=== PATIENT | male | born 1955 | race Caucasian/White ===

== ENCOUNTER 2025-07-21 08:29 | Outpatient (CLI) | payer MEDICARE | END 2025-07-21 08:30 | disposition home or self-care (01) | LOC: CSHSLEEP 08:29 | PROVIDERS: ATTEND Family Medicine | DX: G47.33 Obstructive sleep apnea (adult) (pediatric) (principal); E66.9 Obesity, unspecified; Z68.38 Body mass index [BMI] 38.0-38.9, adult | CPT/HCPCS: 95800 ==

== ENCOUNTER 2025-09-28 08:35 | Outpatient (CLI) | payer MEDICARE | END 2025-09-28 08:36 | disposition home or self-care (01) | LOC: CSHSLEEP 08:35 | PROVIDERS: ATTEND Family Medicine | DX: G47.33 Obstructive sleep apnea (adult) (pediatric) (principal); E66.9 Obesity, unspecified; Z68.38 Body mass index [BMI] 38.0-38.9, adult; G47.61 Periodic limb movement disorder | CPT/HCPCS: 95811 ==